=== PATIENT | female | born 1965 | race Caucasian/White ===

== ENCOUNTER 2019-09-02 11:53 | Inpatient (IN) | payer BC ==
[2019-09-02] MEDS ORDERED: Ketorolac Tromethamine 30 MG/ML VIAL ONE (12:41)
[2019-09-02 12:53] LABS: #Lymphocytes 0.6 thou/uL (1.20-3.40); #Monocytes 0.5 thou/uL (0.11-0.59); #Neutrophils 5.4 thou/uL (1.40-6.50); %Basophils 0.7 % (0.0-1.0); %Eosinophils 0.2 % (0.0-10.0); %Lymphocytes 8.9 % (21.0-51.0); %Monocytes 8.3 % (0.0-10.0); %Neutrophils 81.9 % (42.0-75.0); Hemoglobin 15.7 g/dL (12.0-16.0); Mean Corpuscular HGB CONC 33.6 g/dL (32.0-36.0); Mean Corpuscular Hemoglobin 34.2 pg (27.0-31.0); Mean Platelet Volume 9.2 fL (7.4-10.4); Platelet Count 263 thou/uL (130-400); RBC Distribution Width 11.7 % (11.5-14.5); White Blood Cell (WBC) Count 6.5 thou/uL (4.8-10.8)
[2019-09-02 13:14] LABS: Bilirubin Large (Negative); Blood, Urine Moderate (Negative); Glucose, Urine (Dipstick) Negative (Negative); Leukocyte Negative (Negative); Nitrite Negative (Negative); Protein, Urine (Dipstick) > or equal to 300 mg/dL (Neg-Trace); Urobilinogen 0.2 mg/dL (Less than 2)
--- NOTE | 2019-09-02 13:14 | CT ---
CT head noncontrast HISTORY: Headache. FINDINGS: No comparison. There is no evidence of acute intracranial hemorrhage or infarct. The ventri cles appear normal in size, shape and position. There is no mass effect or shift of midline structures. Visualized paranasal sinuses remain well-aerated. IMPRESSION: No acute intracranial abnormalities are demonstrated.
[2019-09-02 13:16] LABS: Clarity Clear (Clear)
[2019-09-02 13:18] LABS: Bacteria/HPF None Seen HPF (None Seen); RBC/HPF 0-3 HPF (0-3)
[2019-09-02 13:20] LABS: ALT (SGPT) 158 U/L (8-55); AST (SGOT) 123 U/L (5-34); Albumin 5.6 g/dL (3.5-5.0); Alkaline Phosphatase 122 U/L (40-110); BUN (Urea Nitrogen) 16 mg/dL (9.8-20.1); Bilirubin, Total 0.8 mg/dL (0.2-1.2); Calc. Creatinine Clearance 0 mL/min (70-130); Calcium 9.8 mg/dL (7.8-10.44); Chloride 104 mmol/L (98-107); Estimated GFR-MDRD 49; Globulin 3.8 g/dL (2.4-3.5); Glucose 118 mg/dL (70-105); Lipase 113 U/L (8-78); Potassium 5.4 mmol/L (3.5-5.1); Protein, Total 9.4 g/dL (6.0-8.3); Sodium 136 mmol/L (136-145)
[2019-09-02 13:23] LABS: Carbon Dioxide Less than 8 mmol/L (22-29)
[2019-09-02] MEDS ORDERED: Metoclopramide HCl 10 MG/2 ML VIAL ONE (13:24)
[2019-09-02] MEDS ORDERED: diphenhydrAMINE 50 MG/ML VIAL ONE (13:24)
[2019-09-02 13:25] LABS: Amphetamine Not Detected (NotDetected); Barbiturates Screen Not Detected (NotDetected); Benzodiazepine Screen Not Detected (NotDetected); Cocaine Metabolite Screen Not Detected (NotDetected); Medtox Control Line Valid? VALID (VALID); Medtox Reader # READER 4; Methadone Not Detected (NotDetected); Methamphetamine Not Detected (NotDetected); Opiate Screen Detected (NotDetected); Oxycodone Screen Not Detected (NotDetected); Phencyclidine (PCP) Not Detected (NotDetected); THC/Cannabinoid Screen Not Detected (NotDetected); Tricyclic Screen Not Detected (NotDetected)
[2019-09-02] MEDS ORDERED: Acetaminophen 500 MG TAB ONE (14:29)
[2019-09-02] MEDS ORDERED: methylPREDNISolone Sod Succ/PF 125 MG/2 ML VIAL ONE (14:29)
[2019-09-02] MEDS ORDERED: Magnesium 2 GM/50 ML BAG (IN WATER) ONE (14:29)
[2019-09-02] MEDS ORDERED: Ketamine 50 MG/ML (10ML VIAL) ONE (15:17)
[2019-09-02 18:04] LABS: Troponin I Less than 0.010 ng/mL (< 0.028)
[2019-09-02 18:23] VITALS: BMI 22.4
[2019-09-02] MEDS ORDERED: Acetaminophen 325 MG TAB PO SCH (18:30)
[2019-09-02] MEDS ORDERED: Ondansetron ODT 4 MG TAB PO PRN (18:31)
[2019-09-02] MEDS ORDERED: Sodium Chloride 0.9% 1,000 ML IV SCH ×2 (18:45→21:00)
[2019-09-02 19:17] LABS: BUN (Urea Nitrogen) 13 mg/dL (9.8-20.1); Calc. Creatinine Clearance 67 mL/min (70-130); Chloride 110 mmol/L (98-107); Estimated GFR-MDRD 60; Glucose 113 mg/dL (70-105); Potassium 5.5 mmol/L (3.5-5.1); Sodium 134 mmol/L (136-145)
[2019-09-02 19:23] LABS: Carbon Dioxide Less than 8 mmol/L (22-29)
[2019-09-02] MEDS ORDERED: Sodium Bicarbonate 50 MEQ in Sodium Chloride 0.45% 1,000 ML IV SCH (19:30)
[2019-09-02 19:37] LABS: Troponin I 0.021 ng/mL (< 0.028)
[2019-09-02 19:40] LABS: Acetaminophen Less than 6.0 mcg/mL (10.0-30.0); Alcohol Less than 10 mg/dL (Less than 10); CK (CPK) 84 U/L (29-168); Salicylate Less than 8.0 mg/dL (15.0-30.0)
[2019-09-02] MEDS ORDERED: Multivitamins, Adult 10 ML, Folic Acid 1 MG in Dextrose 5 %-0.45 % NaCl 1,000 ML IV SCH (20:00)
[2019-09-02] MEDS ORDERED: Multivitamins, Adult 10 ML, Folic Acid 1 MG, Thiamine HCl 100 MG in Dextrose 5 %-0.45 %... IV SCH (20:00)
[2019-09-02] MEDS: Famotidine/PF 20 mg/2ml Vial SLOW IVP SCH (20:48)
[2019-09-02] MEDS: Lorazepam 2 MG/ML VIAL SLOW IVP PRN (20:50)
[2019-09-02] MEDS: Ketorolac Tromethamine 30 MG/ML VIAL IVP PRN (21:00)
[2019-09-02 21:22] LABS: Actual Bicarbonate (HCO3v) 4 mEq/L (22-28); Base Excess -24.1 mEq/L (-2.0 to +3.0); Calcium, Ionized 1.17 mmol/L (1.16-1.32); Chloride (ABG LAB) 108 mmol/L (98-106); Hemoglobin (Hb) 15.3 g/dL (11.7-16.0); Potassium - ABG Lab 5.01 mmol/L (3.70-5.30); Sodium 137.3 mmol/L (133-146)
[2019-09-02 21:26] LABS: pH (venous) 7.06 (7.32-7.43)
[2019-09-02 21:45] LABS: BUN (Urea Nitrogen) 13 mg/dL (9.8-20.1); Calc. Creatinine Clearance 71 mL/min (70-130); Calcium 8.9 mg/dL (7.8-10.44); Chloride 109 mmol/L (98-107); Estimated GFR-MDRD 64; Glucose 123 mg/dL (70-105); Potassium 4.9 mmol/L (3.5-5.1); Sodium 133 mmol/L (136-145)
[2019-09-02 21:48] LABS: Carbon Dioxide Less than 8 mmol/L (22-29)
[2019-09-02 22:32] LABS: Actual Bicarbonate (HCO3a) 4.8 mEq/L (22-28); Base Excess (BEa) -21.3 mEq/L (-2.0 to +3.0); Calcium, Ionized 1.26 mmol/L (1.12-1.30); Carboxyhemoglobin (COHb) 1.1 gm% (0.0-3.0); Hemoglobin (Hb) 14.2 g/dL (12.0-16.0); O2 Tension (PaO2) 106.8 mmHg (80.0-100.0); Potassium - ABG Lab 4.86 mmol/L (3.70-5.30)
[2019-09-02 22:33] LABS: CO2 Tension 13.8 mmHg (35.0-45.0); Puncture Site RB; pH, Arterial 7.16 (7.35-7.45)
[2019-09-03] MEDS: Lidocaine 5% Patch TD SCH (00:07)
[2019-09-03] MEDS: Sodium Chloride 0.9% 1,000 ML IV SCH ×3 (00:09→14:11)
[2019-09-03 00:41] LABS: Actual Bicarbonate (HCO3v) 7 mEq/L (22-28); Base Excess -21.2 mEq/L (-2.0 to +3.0); Calcium, Ionized 1.18 mmol/L (1.16-1.32); Chloride (ABG LAB) 108 mmol/L (98-106); Hemoglobin (Hb) 14.7 g/dL (11.7-16.0); Potassium - ABG Lab 4.69 mmol/L (3.70-5.30); Sodium 134.3 mmol/L (133-146)
[2019-09-03 00:47] LABS: pH (venous) 7.11 (7.32-7.43)
[2019-09-03 01:00] LABS: BUN (Urea Nitrogen) 12 mg/dL (9.8-20.1); Calc. Creatinine Clearance 75 mL/min (70-130); Calcium 8.7 mg/dL (7.8-10.44); Chloride 109 mmol/L (98-107); Estimated GFR-MDRD 69; Glucose 127 mg/dL (70-105); Potassium 4.6 mmol/L (3.5-5.1); Sodium 132 mmol/L (136-145)
[2019-09-03 01:05] LABS: Carbon Dioxide Less than 8 mmol/L (22-29)
[2019-09-03] MEDS ORDERED: Sodium Bicarb 50 MEQ/50 ML VIAL ONE (01:18)
[2019-09-03] MEDS ORDERED: Sodium Bicarb 50 MEQ/50 ML VIAL IVP SCH (01:30)
[2019-09-03] MEDS ORDERED: Sodium Bicarb 50 MEQ/50 ML Abboject 8.4% SYRINGE IVP SCH (01:30)
--- NOTE | 2019-09-03 03:11 | HP ---
CHIEF COMPLAINT: Vomiting, shaking, and headache. HISTORY OF PRESENT ILLNESS: Ms. Rust is a 54-year-old female with past medical history of chronic neck and back pain, anxiety, presented to the emergency room with shakiness, headache, and vomiting for the last 2 days. The patient denies fever or chills. The patient was seen at [facility] for similar complaint in April which was stated to be anxiety related, but unsure of the workup that occurred at that time. The ED physician discussed the case with Dr. Martinez, who accepted to admit the patient. Dr. Martinez just saw the patient briefly with few orders and signed out the patient to me. I went to see the patient. The patient is still in a lot of discomfort because of the nausea, shakiness, and headache. Reviewing patient's labs, the patient was in severe metabolic acidosis with elevated anion gap and carbon dioxide less than 8, potassium is 5.5. I ordered an arterial blood gas and the pH came back at 7.0. The patient is going to be started on IV sodium bicarb drip. I will go ahead and check serum osmolality, I will transfer the patient to [facility] for close monitoring and I will consult Nephrology. Urine drug screen is positive for opiates, otherwise unremarkable. PAST MEDICAL HISTORY: As mentioned above in the history of present illness. PAST SURGICAL HISTORY: 1. x2. 2. Exploratory laparotomy. 3. Foot surgery x2. PAST PSYCHIATRIC HISTORY: Anxiety. FAMILY HISTORY: Reviewed and noncontributory. ALLERGIES: ALLERGIC TO DEMEROL, MEPERIDINE, AND PENICILLIN. HOME MEDICATIONS: Please see home medication reconciliation form for updated medications. REVIEW OF SYSTEMS: Review of 14 systems negative except what is mentioned in history of present illness. PHYSICAL EXAMINATION: GENERAL: The patient is awake, alert, in moderate to severe distress. VITAL SIGNS: Blood pressure 150/80, pulse is 95, respiratory rate is 18, temperature is 98, oxygen saturation 98% on room air. HEAD AND NECK: Normocephalic, atraumatic. NECK: Supple. Mucous membranes dry. CHEST: Fair bilateral entry. HEART: S1, S2. Regular. ABDOMEN: Soft, nontender. Bowel sounds present. NEUROLOGIC: Awake, alert, and oriented x3, anxious. PSYCHIATRIC: Anxious. GENITOURINARY: No suprapubic tenderness. No flank tenderness. LABORATORY DATA: As mentioned above in the history of present illness. Brain CT, no acute findings. ASSESSMENT: 1. Intractable nausea and vomiting. 2. Severe high anion gap metabolic acidosis, ? starvation ketosis. 3. Headache. 4. Anxiety. 5. Chronic pain. PLAN: 1. We will transfer the patient to [facility] for close monitoring. 2. Continue with IV fluids. The patient started on IV sodium bicarb drip. 3. Consult Nephrology for evaluation and further recommendations. 4. Check serum osmolality. 5. Monitor closely. 6. Reconcile home medications. 7. DVT prophylaxis as appropriate. 8. Expected length of stay, 2 midnights or more. Job ID: [id number]
[2019-09-03 03:21] LABS: Actual Bicarbonate (HCO3v) 8 mEq/L (22-28); Base Excess -15.9 mEq/L (-2.0 to +3.0); Chloride (ABG LAB) 106 mmol/L (98-106); Hemoglobin (Hb) 13.5 g/dL (11.7-16.0); Potassium - ABG Lab 4.68 mmol/L (3.70-5.30); Sodium 133.3 mmol/L (133-146)
[2019-09-03 04:05] LABS: ALT (SGPT) 101 U/L (8-55); AST (SGOT) 64 U/L (5-34); Albumin 4.3 g/dL (3.5-5.0); Alkaline Phosphatase 87 U/L (40-110); Anion Gap 20 mmol/L (10-20); BUN (Urea Nitrogen) 13 mg/dL (9.8-20.1); Bilirubin, Total 0.8 mg/dL (0.2-1.2); Calc. Creatinine Clearance 85 mL/min (70-130); Calcium 8.3 mg/dL (7.8-10.44); Chloride 108 mmol/L (98-107); Estimated GFR-MDRD 80; Globulin 2.8 g/dL (2.4-3.5); Glucose 191 mg/dL (70-105); Potassium 4.7 mmol/L (3.5-5.1); Protein, Total 7.1 g/dL (6.0-8.3); Sodium 131 mmol/L (136-145)
[2019-09-03 04:19] LABS: Carbon Dioxide 8 mmol/L (22-29)
[2019-09-03] MEDS: Ketorolac Tromethamine 30 MG/ML VIAL IVP PRN (08:57)
[2019-09-03] MEDS: Famotidine/PF 20 mg/2ml Vial SLOW IVP SCH ×2 (08:58→20:48)
[2019-09-03 11:25] LABS: Actual Bicarbonate (HCO3a) 13.4 mEq/L (22-28); Base Excess (BEa) -9.3 mEq/L (-2.0 to +3.0); Calcium, Ionized 1.22 mmol/L (1.12-1.30); Carboxyhemoglobin (COHb) 1.2 gm% (0.0-3.0); Hemoglobin (Hb) 12.2 g/dL (12.0-16.0); O2 Tension (PaO2) 90.8 mmHg (80.0-100.0); Potassium - ABG Lab 3.63 mmol/L (3.70-5.30); pH, Arterial 7.41 (7.35-7.45)
[2019-09-03 11:30] LABS: ALV-art Gradient 31.555 (0-20); CO2 Tension 21.9 mmHg (35.0-45.0)
[2019-09-03] MEDS: Lidocaine Patch Removal 1 EACH TOP SCH (14:11)
[2019-09-03 15:02] LABS: Anion Gap 12 mmol/L (10-20); BUN (Urea Nitrogen) 14 mg/dL (9.8-20.1); Calc. Creatinine Clearance 90 mL/min (70-130); Calcium 8.6 mg/dL (7.8-10.44); Carbon Dioxide 15 mmol/L (22-29); Chloride 111 mmol/L (98-107); Estimated GFR-MDRD 82; Glucose 110 mg/dL (70-105); Potassium 3.2 mmol/L (3.5-5.1); Sodium 135 mmol/L (136-145)
--- NOTE | 2019-09-03 15:27 | CON ---
DATE OF CONSULTATION: HISTORY OF PRESENT ILLNESS: Ms. Rust is a 54-year-old female, who presented with a bad headache yesterday. She says she has been having headache that has been severe as well as a neck ache for 3 days. She says she has been having shaking episodes, but she does not have a thermometer at home, so she has never thought about taking her temperature. She has no chronic medical problems. She does not currently have a physician. She was formally cared for by a physician in the [facility]. She has an ice pack on her neck and says her head feels better. She denies currently being nauseated. PAST MEDICAL HISTORY: Remarkable for , laparotomy, and foot surgery in the past. She is a nonsmoker. She drinks whiskey every day, but denies drinking a bottle a day. She has been told she has abnormal liver enzymes in the past. She reports Demerol and penicillin allergies. She denies taking metformin or any diabetic medicine or any medications that would cause metabolic acidosis. REVIEW OF SYSTEMS: Otherwise negative. PHYSICAL EXAMINATION: VITAL SIGNS: Blood pressure is in 130s, heart rate is in 80s, respiratory rates in the 20s. HEENT: Pupils are equal. Sclerae are anicteric. NECK: Not rigid. Throat is clear. LUNGS: Clear. HEART: Regular rhythm. S1 and S2 are normal. ABDOMEN: Absolutely nontender. No mass, organomegaly. EXTREMITIES: Without clubbing, cyanosis, or edema. NEURO: Nonfocal. LABORATORY DATA: White count 6.5, hemoglobin 15.7, platelets 63. Sodium 131, potassium 4.7, chloride 108, bicarb 8, BUN 13, creatinine 0.7. Blood gas 10 o'clock last night, 7.16, CO2 of 13, PO2 of 106. Blood gas this morning; 7.41, CO2 of 21, PO2 of 90. Urinalysis was remarkable only for proteinuria and ketones. Glucose was normal on presentation. IMPRESSION: Severe metabolic acidosis of unclear etiology. No coags were done, but she appears to have intact synthetic liver function with an albumin of 4.3 and a protein of 7.1. Does not have an elevated globulin fraction. She does have ALT greater than AST with a normal bilirubin, but they are just barely elevated. Her headache is more of a concern, so we will order an MRI with and without contrast. Her shaking episodes going on for several weeks are unlikely to be shaking chills (unless she has malaria). I doubt she has malaria. She could have a viral encephalitis, however, or even less likely a fungal encephalitis, meningitis. She certainly does not appear to be histrionic and she certainly could not fake severe metabolic acidosis. She has no history of ingestion. She denies depression. She denies suicidal ideation. I will follow the other physicians caring for. TIME SPENT: This is a 70-minute consult, 50% of the time spent on the unit coordinating care. Job ID: [id number]
--- NOTE | 2019-09-03 15:40 | CON ---
DATE OF CONSULTATION: REASON FOR CONSULTATION: Metabolic acidosis. HISTORY OF PRESENT ILLNESS: This is a very pleasant 54-year-old female, who presented to the hospital late last night with a history of vomiting, shaking, headaches, and diarrhea. The patient has had diarrhea for many days and now vomiting for 2 days. The patient has had headaches. The patient has also been taking pain medication. The patient showed up with a potassium of 5.4, which has improved to 3.4 later in the day. PAST MEDICAL HISTORY: , exploratory laparotomy, history of colon polyps, and history of chronic diarrhea. SOCIOECONOMIC HISTORY: No alcohol or drug use. FAMILY HISTORY: Negative for ESRD. ALLERGIES: REVIEWED. MEDICATIONS: Home medications list, reviewed. REVIEW OF SYSTEMS: A 15-point review of systems was performed, was negative except for positives noted above. HEENT: Eyes intact, no diplopia. Ears: No hearing loss or earache. Nose: No discharge or bleeding. CHEST: No cough or phlegm. ABDOMEN: No nausea or vomiting. GENITOURINARY: No hematuria. No Ball catheter. MUSCULOSKELETAL: No low back pain. No joint swelling or pain. NEUROLOGICAL: No syncope. No seizures. SKIN: No complaints of rash or itching. PSYCHIATRIC: No depression. CONSTITUTIONAL: No weight loss or loss of appetite. PHYSICAL EXAMINATION: GENERAL: The patient is awake and alert. VITAL SIGNS: Afebrile, pulse 75, breathing at 16, blood pressure 117/63. HEENT: Head normocephalic and atraumatic. Eyes intact, no ulcers. Nose intact, no ulcers. Ears intact, no ulcers. NECK: Supple. No JVD. CHEST: Symmetrical and clear. CARDIOVASCULAR: Shows S1 and S2, no rub, no murmur. GASTROINTESTINAL: Abdomen is soft, bowel sounds positive. EXTREMITIES: Show no edema or ulcers. SKIN: Shows no rash or petechiae. MUSCULOSKELETAL: Shows no joint swelling or stiffness. GENITOURINARY: Shows no Ball or CVA tenderness. NEUROLOGIC: Motor intact. Cranial nerves intact. LABORATORY DATA: Reviewed. ASSESSMENT AND PLAN: 1. Acute kidney injury with chronic kidney disease, stable. 2. Metabolic acidosis. The patient has a mixed acid-base disorder, which includes high anion gap and non-anion gap acidosis. Based on her low pH, agree with bicarbonate therapy. I will recheck stat labs today. 3. Medication based on GFR, ketorolac. 4. Chronic diarrhea with nausea and vomiting. We would recommend gentle hydration and rechecking labs every 4 to 6 hours. No indication for dialysis at this time. 5. Diarrhea. We would recommend GI consultation as an outpatient. Job ID: [id number]
--- NOTE | 2019-09-03 15:54 | PDOC.HOSPP ---
- Subjective Encounter Date: 09/03/19 Subjective: Complained of diarrhea. N&V resolved - Objective Vital Signs & Weight: Vital Signs (12 hours) Temp Pulse Resp BP BP Pulse Ox 09/03/19 15:49 98.1 F 76 20 132/80 96 09/03/19 11:00 98.3 F 09/03/19 08:00 98 09/03/19 07:00 98.1 F 09/03/19 04:00 98.3 F 112/73 Weight Weight 143 lb 4.807 oz Most Recent Monitor Data Heart Rate from ECG 85 NIBP 124/77 NIBP BP-Mean 92 Respiration from ECG 22 SpO2 97 I&O: 09/02/19 09/03/19 09/04/19 06:59 06:59 06:59 Intake Total 2201 535 Output Total 1550 2300 Balance 651 -1699 Result Diagrams: 09/02/19 12:28 09/03/19 14:32 Hospitalist ROS - Medication Medications: Active Medications Generic Name Dose Route Start Last Admin Trade Name Jettq PRN Reason Stop Dose Admin Famotidine 20 mg 09/02/19 21:00 09/03/19 08:58 Pepcid SLOW IVP 20 mg Q12HR CALISTA Administration Multivitamins 10 ml/ Folic 1,010.2 mls @ 100 mls/hr 09/02/19 20:00 09/03/19 00:09 Acid 1 mg/ Dextrose/Sodium IV 09/03/19 19:59 1,010.2 mls Chloride Q24HR CALISTA Administration Lidocaine 2 patch 09/02/19 23:59 09/03/19 00:07 Lidoderm 5% Patch TD 2 patch Q24HR CALISTA Administration Lorazepam 1 mg 09/02/19 19:41 09/02/19 20:50 Ativan SLOW IVP 1 mg Q2H PRN Administration Alcohol Withdrawal Miscellaneous Medication 2 each 09/03/19 12:00 09/03/19 14:11 Lidocaine Patch Removal TOP 2 each 1200 CALISTA Administration Ondansetron HCl 4 mg 09/02/19 18:31 09/02/19 18:33 Zofran Odt PO 4 mg Q6H PRN Administration Nausea/Vomiting - Exam General Appearance: NAD ENT: normocephalic atraumatic Neck: supple, symmetric, no JVD Heart: RRR, no murmur, no gallops, no rubs, normal peripheral pulses Respiratory: CTAB, no wheezes, no rales, no ronchi, normal chest expansion Gastrointestinal: soft, non-tender, non-distended, normal bowel sounds Hosp A/P (1) High anion gap metabolic acidosis Code(s): E87.2 - ACIDOSIS Status: Acute (2) Diarrhea Code(s): R19.7 - DIARRHEA, UNSPECIFIED Status: Acute (3) Nausea and vomiting Code(s): R11.2 - NAUSEA WITH VOMITING, UNSPECIFIED Status: Acute (4) NICKOLAS (acute kidney injury) Code(s): N17.9 - ACUTE KIDNEY FAILURE, UNSPECIFIED Status: Acute - Plan High anion gap metabolic acidosis with full respiratory compensation. No clear etiology, likely combination of GI losses and NICKOLAS. Cont IVF
[2019-09-03] MEDS ORDERED: Potassium Chloride 20 MEQ TAB PO SCH (16:00)
--- NOTE | 2019-09-03 16:56 | ULT ---
Renal ultrasound: 09/03/2019 COMPARISON:None available HISTORY:Acute kidney insufficiency TECHNIQUE: Multiplanar grayscale sonographic imaging of the kidneys and urinary bladder obtained. FINDINGS: The right kidney measures9.3 x 4.2 x 5.4 cm and demonstratesno renal mass, hydronephrosis, or stone. The left kidney ffdgtdma61.6 x 4.3 x 4.6 cm and demonstratesno renal mass, hydronephrosis, or stone. The urinary bladderis unremarkable. IMPRESSION:Unremarkable renal ultrasound.
[2019-09-03] MEDS: Multivitamins, Adult 10 ML, Folic Acid 1 MG, Thiamine HCl 100 MG in Dextrose 5 %-0.45 %... IV SCH (20:48)
[2019-09-04] MEDS: Lidocaine 5% Patch TD SCH ×2 (00:02→23:09)
[2019-09-04 06:40] LABS: Hemoglobin 11.9 g/dL (12.0-16.0); Mean Corpuscular HGB CONC 34.9 g/dL (32.0-36.0); Mean Corpuscular Hemoglobin 34.4 pg (27.0-31.0); Mean Corpuscular Volume 98.6 fL (78.0-98.0); Mean Platelet Volume 9.3 fL (7.4-10.4); Platelet Count 149 thou/uL (130-400); RBC Distribution Width 11.8 % (11.5-14.5); Red Blood Cell (RBC) Count 3.45 mill/uL (4.20-5.40)
[2019-09-04] MEDS ORDERED: traMADol HCl 50 MG TAB PO SCH (06:45)
[2019-09-04 07:08] LABS: Anion Gap 11 mmol/L (10-20); BUN (Urea Nitrogen) 17 mg/dL (9.8-20.1); Calc. Creatinine Clearance 101 mL/min (70-130); Calcium 8.2 mg/dL (7.8-10.44); Carbon Dioxide 16 mmol/L (22-29); Chloride 112 mmol/L (98-107); Estimated GFR-MDRD Greater than 90; Glucose 93 mg/dL (70-105); Sodium 136 mmol/L (136-145)
[2019-09-04] MEDS: Famotidine/PF 20 mg/2ml Vial SLOW IVP SCH ×2 (07:56→21:00)
[2019-09-04] MEDS: Lorazepam 2 MG/ML VIAL SLOW IVP PRN (08:50)
[2019-09-04 09:09] LABS: Band 1 % (5-11); Lymphocytes 39 % (21-51); MDiff Complete? YES; Monocytes 3 % (0-10); Neutrophil 57 % (42-75); Platelet Morphology Comment Appears Adequate; Polychromasia SLIGHT = 2-3 cells (100X) (0-2/hpf)
--- NOTE | 2019-09-04 10:29 | MRI ---
MRI BRAIN WITHOUT AND WITH CONTRAST: Date: 09/04/2019 COMPARISON: None. HISTORY: Encephalomyelitis with low back pain. Shaking, chills, and neck ache. TECHNIQUE: Multiplanar, multisequence MR images were obtained of the brain without and with IV contrast. FINDINGS: This exam is limited secondary to motion artifact, particularly on the postcontrast images. The brain demonstrates normal signal intensity on all obtained sequences. No restricted diffusion is seen to suggest an acute infarction. No obvious abnormal enhancement is seen and there is no obvious thickening of the meninges. The expected flow-voids are present. The corpus callosum, pituitary, and craniocervical junction are unremarkable. There is no evidence of hydrocephalus, intracranial hemorrhage, or extra-axial fluid co llection. The calvarium and overlying soft tissues are unremarkable. The visualized paranasal sinuses and masto id air cells are well aerated. IMPRESSION: No evidence of acute intracranial abnormality. POS: [facility]
[2019-09-04] MEDS: Lidocaine Patch Removal 1 EACH TOP SCH (11:53)
[2019-09-04] MEDS ORDERED: Iopamidol 370 76% 100 ML VIAL ONE (13:40)
[2019-09-04] MEDS: Potassium Chloride 20 MEQ TAB PO SCH ×2 (14:05→18:15)
[2019-09-04] MEDS ORDERED: Magnevist 469MG/ML 20 ML VIAL ONE (15:19)
--- NOTE | 2019-09-04 15:27 | PDOC.HOSPP ---
- Subjective Encounter Date: 09/04/19 Subjective: Feeling Better Still complaining of diarrhea - Objective Vital Signs & Weight: Vital Signs (12 hours) Temp Pulse Resp BP Pulse Ox 09/04/19 08:00 97 09/04/19 07:52 98.1 F 70 18 134/81 97 09/04/19 04:00 98 F 71 16 134/76 96 Weight Weight 143 lb 4.807 oz Most Recent Monitor Data Heart Rate from ECG 85 NIBP 124/77 NIBP BP-Mean 92 Respiration from ECG 22 SpO2 97 I&O: 09/03/19 09/04/19 09/05/19 06:59 06:59 06:59 Intake Total 2201 2135 480 Output Total 1550 2300 Balance 651 -165 480 Result Diagrams: 09/04/19 05:37 09/04/19 05:37 Hospitalist ROS - Medication Medications: Active Medications Generic Name Dose Route Start Last Admin Trade Name Freq PRN Reason Stop Dose Admin Famotidine 20 mg 09/02/19 21:00 09/04/19 07:56 Pepcid SLOW IVP 20 mg Q12HR CALISTA Administration Multivitamins 10 ml/ Folic 1,011.2 mls @ 100 mls/hr 09/03/19 20:00 09/03/19 20:48 Acid 1 mg/ Thiamine HCl 100 mg IV 09/05/19 06:07 1,011.2 mls / Dextrose/Sodium Chloride 2000 CALISTA Administration Lidocaine 2 patch 09/02/19 23:59 09/04/19 00:02 Lidoderm 5% Patch TD 2 patch Q24HR CALISTA Administration Lorazepam 1 mg 09/02/19 19:41 09/04/19 08:50 Ativan SLOW IVP 1 mg Q2H PRN Administration Alcohol Withdrawal Miscellaneous Medication 2 each 09/03/19 12:00 09/04/19 11:53 Lidocaine Patch Removal TOP Not Given 1200 CALISTA Ondansetron HCl 4 mg 09/02/19 18:31 09/02/19 18:33 Zofran Odt PO 4 mg Q6H PRN Administration Nausea/Vomiting Potassium Chloride 40 meq 09/04/19 14:00 09/04/19 14:05 K-Dur PO 09/04/19 18:01 40 meq Q4H CALISTA Administration Sodium Chloride 10 ml 09/04/19 09:00 09/04/19 07:59 Flush - Normal Saline IVF 10 ml Q12HR CALISTA Administration - Exam General Appearance: NAD ENT: normocephalic atraumatic Neck: supple, no JVD Heart: RRR, no murmur, no gallops, no rubs, normal peripheral pulses Respiratory: CTAB, no wheezes, no rales, no ronchi, normal chest expansion Gastrointestinal: soft, non-tender, non-distended, normal bowel sounds, no palpable masses Hosp A/P (1) High anion gap metabolic acidosis Code(s): E87.2 - ACIDOSIS Status: Acute (2) Diarrhea Code(s): R19.7 - DIARRHEA, UNSPECIFIED Status: Acute (3) Nausea and vomiting Code(s): R11.2 - NAUSEA WITH VOMITING, UNSPECIFIED Status: Acute (4) NICKOLAS (acute kidney injury) Code(s): N17.9 - ACUTE KIDNEY FAILURE, UNSPECIFIED Status: Acute - Plan High anion gap metabolic acidosis with full respiratory compensation. No clear etiology, likely combination of GI losses and NICKOLAS. Improving with hydration Consult GI for persistent diarrhea
--- NOTE | 2019-09-04 17:54 | CT ---
CT OF THE ABDOMEN AND PELVIS WITH IV CONTRAST INDICATION: Chronic diarrhea, nausea and vomiting, ongoing for a urinary half COMPARISON: None FINDINGS: ABDOMEN: Lung bases: Mild subsegmental atelectasis within the left lower lobe. Right lung bases clear. Liver: There are areas of geographic fatty deposition involving the left hepatic lobe. There are tiny hypodensities within the right hepatic lobe suspicious for tiny cysts. Gallbladder: Normal appearing. Pancreas: Normal. Adrenal glands: Normal. Spleen: Normal. Kidneys and ureters: Normal. No hydronephrosis. Vasculature: Normal. Lymph nodes:No lymphadenopathy. Free fluid in abdomen:No free fluid is evident. PELVIS: Small and large bowel: Normal Appendix:Normal Bladder: Normal. Rectal and perirectal soft tissues:Normal. Reproductive structures: Normal. Free fluid in pelvis: No free fluid is evident. Lymphadenopathy pelvis: No lymphadenopathy is evident. Osseous structures: No acute osseous abnormality. No destructive osteolytic or osteoblastic lesion i s identified. There is scattered degenerative and osteoarthritic changes. Soft tissues:Normal. IMPRESSION: 1. Geographic regions of fatty deposition involving the liver. 2. Small suspected right hepatic lobe cysts. 3. No additional abnormality demonstrated.
[2019-09-04] MEDS: Multivitamins, Adult 10 ML, Folic Acid 1 MG, Thiamine HCl 100 MG in Dextrose 5 %-0.45 %... IV SCH (21:27)
[2019-09-04] MEDS: Vancomycin HCl 25 MG/ML Oral PO SCH (23:09)
--- NOTE | 2019-09-05 00:38 | CON ---
DATE OF CONSULTATION: 09/04/2019 REASON FOR CONSULTATION: Chronic diarrhea. CONSULTING PROVIDER: Elroy Weber MD. HISTORY OF PRESENT ILLNESS: The patient is a 54-year-old female with past medical history of chronic lower back pain, anxiety, chronic neck pain, history of colonic polyps, and family history of colorectal cancer, initially presenting to the hospital with severe metabolic acidosis, nausea, vomiting, and diarrhea. The patient was admitted to the hospital on September 02, 2019, with complaints of nausea, vomiting, increased headache, and generalized whole-body tremor that prompted her to seek healthcare assistance at the [facility] ER. While she was being worked up in the ER, she was noted to have a profound metabolic acidosis with respiratory compensation, was ultimately admitted to the ICU for further management of this condition. However, during the course of her hospital stay, she has also been continued to have increased diarrhea that has been present for the last 2 years. She states that she has over the last year has been having anywhere between 5 and 10 semi-solid bowel movements per day with no difficulty with defecation. This has been associated with increased fecal urgency, but no episodes of fecal incontinence. She also endorses the appearance of a darker colored stools that would appear around once every 2 to 3 months, but have not been persistent. She cannot recall any clear inciting incident with the diarrhea appearing 2 years ago, but does admit to antibiotic use during this time period with most frequent antibiotic use being approximately 2 months ago when she was treated for dental abscess/root canal. With the onset of her symptoms 4 to 5 days ago, she had progressive worsening of dizziness that was associated with loss of eyesight rather than loss of consciousness, generalized weakness, generalized tremor, nausea, vomiting, and significantly elevated blood pressure. During the course of her management of chronic pain, she has been using "a lot of Advil" with intermittent use of Tylenol for any breakthrough pain. She has also been using intermittent use of narcotics that have had acetaminophen with them, but denies regular frequent use. She also endorses increased left lower quadrant abdominal pain that has been present for the last 4 months characterized as an aching type sensation. This pain has been intermittent, occurring almost daily. It is nonradiating and reaches a severity of 5/10. This pain is worse with lying down, better with standing up with no clear association with having a bowel movement. Otherwise, she denies any hematemesis, hematochezia, dysphagia, odynophagia, or weight loss. Her most recent colonoscopy was performed approximately 3 years ago in [place] with normal results per patient. Her last colonoscopy per our system was performed on April 02, 2011 with normal findings except for suboptimal prep. REVIEW OF SYSTEMS: A 10-category review of systems was obtained with all responses negative except for the pertinent positives as listed in HPI. PAST MEDICAL HISTORY: As per HPI. PAST SURGICAL HISTORY: section x2, exploratory laparotomy, and foot surgery x2. FAMILY HISTORY: She states that her father was diagnosed with colorectal cancer around the age of 62. SOCIAL HISTORY: Has been drinking 1 to 2 glasses of whiskey daily since April 2019 with intermittent consumption of wine, but recently states that she had decreased/quit. Currently, she denies any tobacco or illicit drug use. OUTPATIENT MEDICATIONS: Reviewed. ALLERGIES: DEMEROL, MEPERIDINE, AND PENICILLIN. PHYSICAL EXAMINATION: VITAL SIGNS: Temperature 98.1, pulse 70, blood pressure 134/81, respiratory rate 18, saturating 97% on room air. GENERAL: The patient was lying in bed, in no acute distress. Alert and oriented x4. HEENT: Normocephalic and atraumatic. NECK: Supple. No JVD or scleral icterus noted. CARDIOVASCULAR: Regular rate and rhythm with no discernible murmurs, gallops, or rubs. RESPIRATORY: Clear to auscultation bilaterally with no discernible wheezes or rales. ABDOMEN: Normoactive bowel sounds. Soft, nondistended. Tenderness to palpation in all abdominal quadrants especially in the left lower quadrant. EXTREMITIES: No cyanosis, clubbing, or edema. LABORATORY DATA: CBC with a white blood cell count of 4, hemoglobin 11.9, hematocrit 34.1, and platelets 149. Chemistry with a sodium of 136, potassium 3, chloride 112, CO2 of 16, BUN 17, creatinine 0.66, glucose 93. AST 64, ALT 101, alkaline phosphatase 87, total bilirubin 0.8. Microbiology was negative for ova and parasites, Campylobacter, or E coli. However, C diff PCR testing was positive for both antigen and toxin. IMAGING DATA: CT of the abdomen/pelvis was obtained on September 04, 2019, which showed geographic regions of fatty deposition within the left hepatic lobe in addition to tiny hypodensities within the right hepatic lobe suspicious for tiny cysts (not characterized). Mild subsegmental atelectasis was seen within the left lower lobe, but otherwise the lungs were clear. There was no additional abdominal abnormality seen. ASSESSMENT AND PLAN: The patient is a 54-year-old female with past medical history of chronic lower back pain, chronic neck pain, anxiety, and history of colonic polyps presenting with severe metabolic acidosis, abdominal pain, and chronic diarrhea with microbiology positive for Clostridium difficile. Clostridium difficile colitis: The patient is presenting with initial diagnosis of severe metabolic acidosis with hyperkalemia that ultimately prompted her to seek healthcare assistance and manifested itself as dizziness, generalized weakness, nausea, vomiting, hypertension, and generalized tremor. During the course of her hospitalization, she has continued to have increased diarrhea that has been essentially present for the last 2 years and most likely contributed, but was not the sole factor related to her severe metabolic acidosis (if the diarrhea had been sole factor of her acidosis, then she would have most likely presented with hypokalemia with significant GI losses). In terms of her acidosis, the exact etiology is unknown at this time, but likely contributing due to the concurrent Clostridium difficile infection resulting in 7 to 10 semi-solid bowel movements per day. More than likely, this is antibiotic associated with recent antibiotic administration within the last couple of months, but it is unclear in terms of the chronicity of this particular infection (C diff can be present for years). RECOMMENDATIONS: 1. Would continue to trend the patient's chemistry daily for response to therapy. 2. Would place the patient on oral vancomycin 125 mg every 6 hours for treatment of Clostridium difficile colitis. 3. Would continue to monitor the patient clinically with solidification of her stools indicating response to treatment. 4. Would follow up on a 24-hour urine collection of 5-HIAA for possible carcinoid tumor (can present as a myriad of symptoms including flushing, tremor, abdominal pain, and diarrhea). 5. Continue with IV fluid hydration as you are doing. 6. Pain control per primary team. We will continue to follow. Please call with any questions. Job ID: [id number]
[2019-09-05] MEDS: Vancomycin HCl 25 MG/ML Oral PO SCH ×4 (05:48→23:23)
[2019-09-05 06:23] LABS: Anion Gap 10 mmol/L (10-20); BUN (Urea Nitrogen) 10 mg/dL (9.8-20.1); Calc. Creatinine Clearance 109 mL/min (70-130); Calcium 8.6 mg/dL (7.8-10.44); Carbon Dioxide 22 mmol/L (22-29); Chloride 109 mmol/L (98-107); Estimated GFR-MDRD Greater than 90; Glucose 101 mg/dL (70-105); Potassium 3.6 mmol/L (3.5-5.1); Sodium 137 mmol/L (136-145)
[2019-09-05 08:28] LABS: Hemoglobin 12.4 g/dL (12.0-16.0); Mean Corpuscular HGB CONC 34.2 g/dL (32.0-36.0); Mean Corpuscular Hemoglobin 33.7 pg (27.0-31.0); Mean Corpuscular Volume 98.4 fL (78.0-98.0); Mean Platelet Volume 9.1 fL (7.4-10.4); Platelet Count 147 thou/uL (130-400); RBC Distribution Width 11.6 % (11.5-14.5); Red Blood Cell (RBC) Count 3.68 mill/uL (4.20-5.40); White Blood Cell (WBC) Count 2.9 thou/uL (4.8-10.8)
[2019-09-05] MEDS: Famotidine/PF 20 mg/2ml Vial SLOW IVP SCH ×2 (08:29→19:59)
[2019-09-05 09:18] LABS: Band 2 % (5-11); Lymphocytes 49 % (21-51); MDiff Complete? YES; Monocytes 9 % (0-10); Neutrophil 38 % (42-75); RBC Morphology Normal
[2019-09-05] MEDS: Lidocaine Patch Removal 1 EACH TOP SCH (11:22)
[2019-09-05] MEDS: traMADol HCl 50 MG TAB PO PRN (15:21)
--- NOTE | 2019-09-05 19:06 | PRG ---
DATE OF SERVICE: 09/05/2019 REASON FOR CONSULTATION: Chronic diarrhea, acidosis. SUBJECTIVE: The patient had infectious stool studies obtained yesterday that were positive for Clostridium difficile. She was subsequently placed on oral vancomycin, and today states that she is feeling somewhat better. She continues to have frequent diarrhea with approximately 4 to 5 liquid bowel movements over the course of the last 12 to 24 hours. However, she currently denies any nausea, vomiting, GI bleeding, dysphagia, or odynophagia. She also states that her abdominal pain continues, but has improved as well. OBJECTIVE: VITAL SIGNS: Temperature 98.9, pulse 70, blood pressure 125/80, respiratory rate 18, saturating 96% on room air. GENERAL: The patient was lying in bed, in no acute distress. Alert and oriented x4. CARDIOVASCULAR: Regular rate and rhythm. RESPIRATORY: Clear to auscultation bilaterally. ABDOMEN: Normoactive bowel sounds. Soft, nondistended. Tenderness to palpation in all abdominal quadrants. EXTREMITIES: No cyanosis, clubbing, or edema. LABORATORY DATA: CBC with a white blood cell count of 2.9, hemoglobin 12.4, hematocrit 36.2, platelets 147. Chemistry with a sodium of 137, potassium 3.6, chloride 109, CO2 of 22, BUN 10, creatinine 0.61, glucose 101. Microbiology was negative for ova and parasites, Campylobacter, or E coli. However, C diff PCR testing was positive for both antigen and toxin. ASSESSMENT AND PLAN: The patient is a 54-year-old female with past medical history of chronic lower back pain, chronic neck pain, anxiety, and history of colonic polyps, presenting with severe metabolic acidosis, abdominal pain, and chronic diarrhea, with microbiology positive for Clostridium difficile colitis. Clostridium difficile colitis: The patient initially presented with severe metabolic acidosis with hyperkalemia, manifesting as dizziness, generalized weakness, nausea, vomiting, hypertension, generalized tremor, and diarrhea. Upon further questioning the patient, she had been having chronic diarrhea for at least the last 2 years, having approximately 7 to 10 semi-solid bowel movements per day. Infectious stool studies obtained during this admission were positive for Clostridium difficile. Upon placing the patient on oral vancomycin, she has exhibited some improvement in her symptoms, but continues to have diarrhea with no solid component at this time. RECOMMENDATIONS: 1. We would continue the patient on oral vancomycin 125 mg every 6 hours for treatment of Clostridium difficile colitis. 2. Continue to monitor the patient clinically for solidification of her stools indicating good response to treatment. 3. We will still follow up on the 24-urine collection for 5-HIAA for possible carcinoid tumor. 4. Continue with gentle IV fluid hydration as you are doing, but we will consider decreasing or discontinuation with advancement of the patient's diet. 5. Pain control per Primary Team. Given the patient placed on appropriate therapy for Clostridium difficile, we will continue to follow peripherally at this time. Please call with any questions. Job ID: [id number]
--- NOTE | 2019-09-05 22:01 | PDOC.HOSPP ---
- Subjective Encounter Date: 09/05/19 - Objective Vital Signs & Weight: Weight Weight 149 lb 4.8 oz Most Recent Monitor Data Heart Rate from ECG 85 NIBP 124/77 NIBP BP-Mean 92 Respiration from ECG 22 SpO2 97 I&O: 09/04/19 09/05/19 09/06/19 06:59 06:59 06:59 Intake Total 2135 720 840 Output Total 2300 Balance -165 720 840 Result Diagrams: 09/05/19 05:40 09/05/19 05:40 Hospitalist ROS - Medication Medications: Active Medications Generic Name Dose Route Start Last Admin Trade Name Freq PRN Reason Stop Dose Admin Famotidine 20 mg 09/02/19 21:00 09/05/19 19:59 Pepcid SLOW IVP 20 mg Q12HR CALISTA Administration Lidocaine 2 patch 09/02/19 23:59 09/04/19 23:09 Lidoderm 5% Patch TD 2 patch Q24HR CALISTA Administration Lorazepam 1 mg 09/02/19 19:41 09/04/19 08:50 Ativan SLOW IVP 1 mg Q2H PRN Administration Alcohol Withdrawal Miscellaneous Medication 2 each 09/03/19 12:00 09/05/19 11:22 Lidocaine Patch Removal TOP Not Given 1200 CALISTA Ondansetron HCl 4 mg 09/02/19 18:31 09/02/19 18:33 Zofran Odt PO 4 mg Q6H PRN Administration Nausea/Vomiting Sodium Chloride 10 ml 09/04/19 09:00 09/05/19 19:59 Flush - Normal Saline IVF 10 ml Q12HR CALISTA Administration Tramadol HCl 50 mg 09/05/19 15:00 09/05/19 15:21 Ultram PO 50 mg Q4H PRN Administration Pain Vancomycin HCl 125 mg 09/04/19 23:59 09/05/19 17:26 First Vancomycin PO 125 mg Q6HR CALISTA Administration - Exam General Appearance: awake alert ENT: normocephalic atraumatic Neck: supple, no JVD Heart: RRR, no murmur, no gallops, no rubs, normal peripheral pulses Respiratory: CTAB, no wheezes, no rales, no ronchi, normal chest expansion Gastrointestinal: soft, non-tender, non-distended, normal bowel sounds Hosp A/P (1) High anion gap metabolic acidosis Code(s): E87.2 - ACIDOSIS Status: Acute (2) Diarrhea Code(s): R19.7 - DIARRHEA, UNSPECIFIED Status: Acute (3) Nausea and vomiting Code(s): R11.2 - NAUSEA WITH VOMITING, UNSPECIFIED Status: Acute (4) NICKOLAS (acute kidney injury) Code(s): N17.9 - ACUTE KIDNEY FAILURE, UNSPECIFIED Status: Acute - Plan 09/03: High anion gap metabolic acidosis with full respiratory compensation. No clear etiology, likely combination of GI losses and NICKOLAS. Improving with hydration Consult GI for persistent diarrhea. 09/03: The patient's acid-base status continues to improve. She had no new complaints today other than her diarrhea which is improving. C. difficile test was positive. The patient was started on p.o. vancomycin. GI following.
[2019-09-05] MEDS: Lidocaine 5% Patch TD SCH (23:23)
[2019-09-06] MEDS: traMADol HCl 50 MG TAB PO PRN ×2 (03:22→08:45)
[2019-09-06] MEDS: Vancomycin HCl 25 MG/ML Oral PO SCH ×3 (04:59→17:29)
[2019-09-06 06:22] LABS: Anion Gap 9 mmol/L (10-20); BUN (Urea Nitrogen) 12 mg/dL (9.8-20.1); Calc. Creatinine Clearance 110 mL/min (70-130); Carbon Dioxide 25 mmol/L (22-29); Chloride 106 mmol/L (98-107); Estimated GFR-MDRD Greater than 90; Glucose 102 mg/dL (70-105); Potassium 3.3 mmol/L (3.5-5.1); Sodium 137 mmol/L (136-145)
[2019-09-06 06:28] LABS: Band 5 % (5-11); Eosinophils 3 % (0-10); Hemoglobin 11.9 g/dL (12.0-16.0); Lymphocytes 56 % (21-51); MDiff Complete? YES; Mean Corpuscular HGB CONC 35.7 g/dL (32.0-36.0); Mean Corpuscular Hemoglobin 34.9 pg (27.0-31.0); Mean Corpuscular Volume 97.9 fL (78.0-98.0); Mean Platelet Volume 8.7 fL (7.4-10.4); Monocytes 10 % (0-10); Neutrophil 25 % (42-75); Platelet Count 138 thou/uL (130-400); RBC Distribution Width 11.6 % (11.5-14.5); Reactive Lymphocytes 1 % (0-10); Red Blood Cell (RBC) Count 3.42 mill/uL (4.20-5.40); White Blood Cell (WBC) Count 2.6 thou/uL (4.8-10.8)
[2019-09-06] MEDS: Famotidine/PF 20 mg/2ml Vial SLOW IVP SCH ×2 (08:48→20:27)
[2019-09-06] MEDS: Lidocaine Patch Removal 1 EACH TOP SCH (13:05)
[2019-09-06] MEDS ORDERED: Potassium Chloride 20 MEQ TAB PO SCH (16:30)
--- NOTE | 2019-09-06 16:31 | PDOC.HOSPP ---
- Subjective Encounter Date: 09/06/19 Subjective: Still having multiple loose stools - Objective Vital Signs & Weight: Vital Signs (12 hours) Temp Pulse Resp BP BP Pulse Ox 09/06/19 14:14 123/85 09/06/19 14:00 98.2 F 78 16 123/85 95 09/06/19 08:50 110/74 09/06/19 08:00 98.4 F 66 20 110/74 97 Weight Weight 149 lb 4.8 oz Most Recent Monitor Data Heart Rate from ECG 85 NIBP 124/77 NIBP BP-Mean 92 Respiration from ECG 22 SpO2 97 I&O: 09/05/19 09/06/19 09/07/19 06:59 06:59 06:59 Intake Total 720 840 Balance 720 840 Result Diagrams: 09/06/19 05:48 09/06/19 05:48 Hospitalist ROS - Medication Medications: Active Medications Generic Name Dose Route Start Last Admin Trade Name Freq PRN Reason Stop Dose Admin Famotidine 20 mg 09/02/19 21:00 09/06/19 08:48 Pepcid SLOW IVP 20 mg Q12HR CALISTA Administration Lidocaine 2 patch 09/02/19 23:59 09/05/19 23:23 Lidoderm 5% Patch TD 2 patch Q24HR CALISTA Administration Lorazepam 1 mg 09/02/19 19:41 09/04/19 08:50 Ativan SLOW IVP 1 mg Q2H PRN Administration Alcohol Withdrawal Miscellaneous Medication 2 each 09/03/19 12:00 09/06/19 13:05 Lidocaine Patch Removal TOP 2 each 1200 CALISTA Administration Ondansetron HCl 4 mg 09/02/19 18:31 09/02/19 18:33 Zofran Odt PO 4 mg Q6H PRN Administration Nausea/Vomiting Sodium Chloride 10 ml 09/04/19 09:00 09/06/19 08:48 Flush - Normal Saline IVF 10 ml Q12HR CALISTA Administration Tramadol HCl 50 mg 09/05/19 15:00 09/06/19 08:45 Ultram PO 50 mg Q4H PRN Administration Pain Vancomycin HCl 125 mg 09/04/19 23:59 09/06/19 13:04 First Vancomycin PO 125 mg Q6HR CALISTA Administration - Exam General Appearance: awake alert Eye: PERRL Neck: supple, no JVD Heart: RRR, no murmur, no gallops, no rubs, normal peripheral pulses Respiratory: CTAB, no wheezes, no rales, no ronchi, normal chest expansion Gastrointestinal: soft, non-tender, non-distended, normal bowel sounds, no palpable masses Hosp A/P (1) C. difficile colitis Code(s): A04.72 - ENTEROCOLITIS D/T CLOSTRIDIUM DIFFICILE, NOT SPCF RECUR Status: Acute (2) High anion gap metabolic acidosis Code(s): E87.2 - ACIDOSIS Status: Acute (3) Diarrhea Code(s): R19.7 - DIARRHEA, UNSPECIFIED Status: Acute (4) Nausea and vomiting Code(s): R11.2 - NAUSEA WITH VOMITING, UNSPECIFIED Status: Acute (5) NICKOLAS (acute kidney injury) Code(s): N17.9 - ACUTE KIDNEY FAILURE, UNSPECIFIED Status: Acute - Plan 09/03: High anion gap metabolic acidosis with full respiratory compensation. No clear etiology, likely combination of GI losses and NICKOLAS. Improving with hydration Consult GI for persistent diarrhea. 09/03: The patient's acid-base status continues to improve. She had no new complaints today other than her diarrhea which is improving. C. difficile test was positive. The patient was started on p.o. vancomycin. GI following. 09/04: The patient is still symptomatic from C diff colitis Mild hypokalemia reported Continue oral vancomycin and IVF NICKOLAS resolved
[2019-09-07] MEDS: Vancomycin HCl 25 MG/ML Oral PO SCH ×5 (01:11→23:47)
[2019-09-07] MEDS: Lidocaine 5% Patch TD SCH ×2 (01:13→23:47)
[2019-09-07] MEDS: traMADol HCl 50 MG TAB PO PRN ×5 (05:30→23:47)
[2019-09-07 06:19] LABS: Anion Gap 13 mmol/L (10-20); BUN (Urea Nitrogen) 13 mg/dL (9.8-20.1); Calc. Creatinine Clearance 122 mL/min (70-130); Calcium 9.2 mg/dL (7.8-10.44); Carbon Dioxide 21 mmol/L (22-29); Chloride 105 mmol/L (98-107); Estimated GFR-MDRD Greater than 90; Glucose 96 mg/dL (70-105); Potassium 3.9 mmol/L (3.5-5.1); Sodium 135 mmol/L (136-145)
[2019-09-07 06:49] LABS: Hemoglobin 12.7 g/dL (12.0-16.0); Mean Corpuscular HGB CONC 33.2 g/dL (32.0-36.0); Mean Corpuscular Volume 99.4 fL (78.0-98.0); Mean Platelet Volume 9.6 fL (7.4-10.4); Platelet Count 168 thou/uL (130-400); RBC Distribution Width 11.8 % (11.5-14.5); Red Blood Cell (RBC) Count 3.86 mill/uL (4.20-5.40); White Blood Cell (WBC) Count 2.9 thou/uL (4.8-10.8)
[2019-09-07 08:11] LABS: Band 2 % (5-11); Eosinophils 2 % (0-10); Lymphocytes 62 % (21-51); MDiff Complete? YES; Monocytes 4 % (0-10); Neutrophil 30 % (42-75); Platelet Morphology Comment Appears Adequate; Polychromasia SLIGHT = 2-3 cells (100X) (0-2/hpf)
[2019-09-07] MEDS: Famotidine/PF 20 mg/2ml Vial SLOW IVP SCH ×2 (08:44→20:29)
[2019-09-07] MEDS: Lidocaine Patch Removal 1 EACH TOP SCH (12:53)
--- NOTE | 2019-09-07 22:44 | PDOC.HOSPP ---
- Subjective Encounter Date: 09/07/19 - Objective Vital Signs & Weight: Vital Signs (12 hours) Temp Pulse Resp BP BP Pulse Ox 09/07/19 20:10 98.7 F 86 16 127/83 127/83 97 09/07/19 16:49 98.7 F 66 20 107/71 98 09/07/19 12:26 98.2 F 66 20 119/80 98 Weight Weight 149 lb 4.8 oz Most Recent Monitor Data Heart Rate from ECG 85 NIBP 124/77 NIBP BP-Mean 92 Respiration from ECG 22 SpO2 97 I&O: 09/06/19 09/07/19 09/08/19 06:59 06:59 06:59 Intake Total 840 732 Balance 840 732 Result Diagrams: 09/07/19 05:29 09/07/19 05:29 Hospitalist ROS - Medication Medications: Active Medications Generic Name Dose Route Start Last Admin Trade Name Freq PRN Reason Stop Dose Admin Famotidine 20 mg 09/02/19 21:00 09/07/19 20:29 Pepcid SLOW IVP 20 mg Q12HR CALISTA Administration Lidocaine 2 patch 09/02/19 23:59 09/07/19 01:13 Lidoderm 5% Patch TD 2 patch Q24HR CALISTA Administration Lorazepam 1 mg 09/02/19 19:41 09/04/19 08:50 Ativan SLOW IVP 1 mg Q2H PRN Administration Alcohol Withdrawal Miscellaneous Medication 2 each 09/03/19 12:00 09/07/19 12:53 Lidocaine Patch Removal TOP 2 each 1200 CALISTA Administration Ondansetron HCl 4 mg 09/02/19 18:31 09/02/19 18:33 Zofran Odt PO 4 mg Q6H PRN Administration Nausea/Vomiting Sodium Chloride 10 ml 09/04/19 09:00 09/07/19 20:29 Flush - Normal Saline IVF 10 ml Q12HR CALISTA Administration Tramadol HCl 50 mg 09/05/19 15:00 09/07/19 18:09 Ultram PO 50 mg Q4H PRN Administration Pain Vancomycin HCl 125 mg 09/04/19 23:59 09/07/19 18:09 First Vancomycin PO 125 mg Q6HR CALISTA Administration - Exam General Appearance: awake alert ENT: normocephalic atraumatic Neck: supple, no JVD Respiratory: normal chest expansion, no tachypnea Gastrointestinal: soft, non-tender Neurological: cranial nerve grossly intact, no focal deficits Hosp A/P (1) C. difficile colitis Code(s): A04.72 - ENTEROCOLITIS D/T CLOSTRIDIUM DIFFICILE, NOT SPCF RECUR Status: Acute (2) High anion gap metabolic acidosis Code(s): E87.2 - ACIDOSIS Status: Acute (3) Diarrhea Code(s): R19.7 - DIARRHEA, UNSPECIFIED Status: Acute (4) Nausea and vomiting Code(s): R11.2 - NAUSEA WITH VOMITING, UNSPECIFIED Status: Acute (5) NICKOLAS (acute kidney injury) Code(s): N17.9 - ACUTE KIDNEY FAILURE, UNSPECIFIED Status: Acute - Plan 09/03: High anion gap metabolic acidosis with full respiratory compensation. No clear etiology, likely combination of GI losses and NICKOLAS. Improving with hydration Consult GI for persistent diarrhea. 09/04: The patient's acid-base status continues to improve. She had no new complaints today other than her diarrhea which is improving. C. difficile test was positive. The patient was started on p.o. vancomycin. GI following. 09/05: The patient is still symptomatic from C diff colitis Mild hypokalemia reported Continue oral vancomycin and IVF NICKOLAS resolved 09/06: The patient is feeling better today. Her bowel movements are more formed. Will continue oral vancomycin and hopefully discharge tomorrow.
[2019-09-08] MEDS: traMADol HCl 50 MG TAB PO PRN ×4 (05:26→18:29)
[2019-09-08 05:54] LABS: Band 2 % (5-11); Eosinophils 2 % (0-10); Hemoglobin 12.5 g/dL (12.0-16.0); Hypochromia SLIGHT = 6-15 cells (100X) (0-5/hpf); Lymphocytes 46 % (21-51); MDiff Complete? YES; Mean Corpuscular HGB CONC 33.4 g/dL (32.0-36.0); Mean Corpuscular Hemoglobin 33.7 pg (27.0-31.0); Mean Platelet Volume 9.5 fL (7.4-10.4); Monocytes 6 % (0-10); Neutrophil 44 % (42-75); Platelet Count 175 thou/uL (130-400); Platelet Morphology Comment Appears Adequate; RBC Distribution Width 12.1 % (11.5-14.5); Red Blood Cell (RBC) Count 3.71 mill/uL (4.20-5.40); White Blood Cell (WBC) Count 2.9 thou/uL (4.8-10.8)
[2019-09-08] MEDS: Vancomycin HCl 25 MG/ML Oral PO SCH ×3 (05:58→17:45)
[2019-09-08 06:03] LABS: Anion Gap 11 mmol/L (10-20); BUN (Urea Nitrogen) 13 mg/dL (9.8-20.1); Calc. Creatinine Clearance 104 mL/min (70-130); Calcium 9.1 mg/dL (7.8-10.44); Carbon Dioxide 26 mmol/L (22-29); Chloride 104 mmol/L (98-107); Estimated GFR-MDRD Greater than 90; Glucose 98 mg/dL (70-105); Potassium 4.1 mmol/L (3.5-5.1); Sodium 137 mmol/L (136-145)
[2019-09-08] MEDS: Famotidine/PF 20 mg/2ml Vial SLOW IVP SCH (09:36)
[2019-09-08] MEDS: Lidocaine Patch Removal 1 EACH TOP SCH (14:19)
[2019-09-08 16:53] VITALS: BP 112/74; TEMP 98.5
[2019-09-10 11:37] LABS: 5 HIAA,Urine 0.7 mg/L (Undefined); 5 HIAA-24H Urine 1.8 mg/24 hr (0.0-14.9)
== END 2019-09-08 19:20 | disposition home or self-care (01) | DRG 372 ==
LOC: ERS 11:53 → 2SW 16:39 → OBSVTOIN 16:39 → CCU 22:36 → T4-A 09-03 15:48
PROVIDERS: ADMIT Internal Medicine; ATTEND Internal Medicine
DX: A04.72 Enterocolitis due to Clostridium difficile, not specified as recurrent (principal); N17.9 Acute kidney failure, unspecified; E87.2 Acidosis; R19.7 Diarrhea, unspecified; E87.6 Hypokalemia; F41.9 Anxiety disorder, unspecified; M54.5 Low back pain; G89.29 Other chronic pain; N18.9 Chronic kidney disease, unspecified; Z88.5 Allergy status to narcotic agent; Z88.0 Allergy status to penicillin
CPT/HCPCS: 36415; 36416; 70450; 70553; 74177; 76770; 80048; 80053; 80306; 80307; 81003; 81015; 82550; 82805; 83497; 83605; 83690; 83930; 84443; 84484; 85007; 85025; 85027; 87045; 87046; 87324; 87328; 87329; 87427; 87449; 87493; 93005; 96361; 96365; 96367; 96375; A9579; J1200; J1885; J2060; J2765; J2930; J3411; J3475; J7042; Q0162; Q9967; S0028

== ENCOUNTER 2019-12-18 12:57 | Outpatient (CLI) | payer BC ==
--- NOTE | 2019-12-18 13:50 | RAD ---
Exam: XR Knee Rt 4 View STANDARD HISTORY: Right knee pain. COMPARISON: None FINDINGS: Tiny scattered osteophytes are seen about the right knee. No significant joint space is appreciated. No acute fracture, dislocation, or other acute osseous abnormality is identified. IMPRESSION: No acute osseous abnormality is identified.
--- NOTE | 2019-12-18 13:56 | RAD ---
EXAM: XR Lumbar Spine 2 Or 3 View PROVIDED CLINICAL HISTORY: Spinal stenosis, low back pain. COMPARISON: None FINDINGS: There are 6 nonrib-bearing lumbar-type vertebral bodies. T12 ribs are probably hypoplastic. The verte bral body heights are within normal limits. Grade 1 anterolisthesis of L4 on L5 is present measuring approximately 8 mm. There is loss of intervertebral disc height at the L4-5 and L5-S1 level s. No fracture is seen. There is mild left convex scoliosis thoracolumbar spine. Facet degenerative changes are seen in the lower lumbar spine. IMPRESSION: 1. Grade 1 anterolisthesis of L4 on L5 with degenerative changes in the lower lumbar spine. 2. Left convex scoliosis thoracolumbar spine.
== END 2019-12-18 12:58 | disposition home or self-care (01) ==
LOC: BICRAD 12:57
PROVIDERS: ATTEND Specialist
DX: M54.5 Low back pain (principal); M25.561 Pain in right knee; M47.816 Spondylosis without myelopathy or radiculopathy, lumbar region; M43.16 Spondylolisthesis, lumbar region; M41.85 Other forms of scoliosis, thoracolumbar region
CPT/HCPCS: 72100

== ENCOUNTER 2020-11-26 09:43 | Outpatient (CLI) | payer BC | END 2020-11-26 09:44 | disposition home or self-care (01) | LOC: BICMRI 09:43 | PROVIDERS: ATTEND Nurse Practitioner Family | DX: M47.22 Other spondylosis with radiculopathy, cervical region (principal); M48.02 Spinal stenosis, cervical region | CPT/HCPCS: 72141 ==

== ENCOUNTER 2020-12-18 10:55 | Outpatient (CLI) | payer BC | END 2020-12-18 10:56 | disposition home or self-care (01) | LOC: BICMAMMO 10:55 | PROVIDERS: ATTEND Specialist | DX: Z12.31 Encounter for screening mammogram for malignant neoplasm of breast (principal); R91.8 Other nonspecific abnormal finding of lung field | CPT/HCPCS: 71046; 77063; 77067 ==